=== PATIENT | male | born 1995 ===

== ENCOUNTER 2020-09-12 11:35 | Emergency (ER) | payer MEDICAID ==
[~2020-09-12] VITALS: Ht 170.2 cm; Wt 85.5 kg
[2020-09-12 12:16] VITALS: BP 118/67
== END 2020-09-12 14:46 | disposition left against medical advice (07) ==
LOC: ER 11:35
DX: M25.531 Pain in right wrist (principal); Z53.21 Procedure and treatment not carried out due to patient leaving prior to being seen by health care provider